=== PATIENT | female | born 1985 | race Caucasian/White ===

== ENCOUNTER → 2025-03-29 | Outpatient (CLI) | payer BC, SELFPAY ==
--- NOTE | 2025-03-29 13:53 | BI_ITS ---
EXAM: SCRN MAMM (CAD)W/BELINDA BILAT DATE: 03/29/2025 CLINICAL HISTORY: F, Age 39 y/o , SCREENING BREAST CANCER RISK ASSESSMENT: Na TECHNIQUE: Bilateral screening digital breast tomosynthesis with 2D and 3D images. Computer aided detection. COMPARISON: None available FINDINGS: TISSUE DENSITY: The breast tissue is heterogenously dense, which may obscure small masses. Bilateral Breast Mammographic Findings: No suspicious masses, calcifications or other abnormalities are identified. BI/SCRN MAMM (CAD)W/BELINDA BILAT IMPRESSION: OVERALL FINAL ASSESSMENT: BIRADS 1 NEGATIVE RECOMMENDATION: Routine annual follow-up in 1 Year A letter with findings and recommendations will be mailed to the patient. Reading Location: [id number]
== END | disposition home or self-care (01) ==
LOC: US 13:50 → OPBI 13:51
PROVIDERS: PCP Nurse Practitioner Family; Referring Provider Nurse Practitioner Family; Visit Provider Nurse Practitioner Family
DX: Z12.31 Encounter for screening mammogram for malignant neoplasm of breast (principal)
CPT/HCPCS: 77063; 77067